=== PATIENT | male | born 1985 | race Two or more races ===

== ENCOUNTER 2018-11-03 19:36 | Emergency (ER) | payer SELFPAY ==
[~2018-11-03] VITALS: Ht 180.3 cm; Wt 68.0 kg
[2018-11-03 20:00] VITALS: BP 120/68
--- NOTE | 2018-11-03 20:00 | Emergency Room Report ---
History of Present Illness General Chief Complaint: Medical Clearance Source: Patient Present Illness HPI 33-year-old male patient presents the ER brought in by police for medical clearance for incarceration. Patient denies acute complaints at this time. Please report the patient initially was complaining of cut on wrist and bilateral wrist pain secondary to handcuffs. Denies wrist pain currently. Patient denies other acute complaints at this time. Denies fever, chest pain, shortness of breath, abdominal pain. Patient states "I do not want to be here". Allergies: Coded Allergies: No Known Allergies (Unverified , 11/03/18) Patient History Past Medical History: see triage record Reviewed Nursing Documentation: PMH: Agreed; PSxH: Agreed Nursing Documentation-PMH Past Medical History: No Stated History Review of Systems All Other Systems: negative except mentioned in HPI Physical Exam Vital Signs Date Time Temp Pulse Resp B/P (MAP) Pulse Ox O2 Delivery O2 Flow Rate FiO2 11/03/18 19:45 98.6 88 17 120/68 99 Room Air Sp02 EP Interpretation: reviewed, normal General Appearance: well appearing, no apparent distress, alert, GCS 15, non- toxic Head: normocephalic, atraumatic Eyes: bilateral eye normal inspection, bilateral eye PERRL ENT: hearing grossly normal, normal pharynx, no angioedema, normal voice, uvula midline, moist mucus membranes Neck: full range of motion Respiratory: lungs clear, normal breath sounds, no rhonchi, no respiratory distress, no accessory muscle use, no wheezing, speaking full sentences Cardiovascular #1: regular rate, rhythm, no edema Cardiovascular #2: 2+ radial (R), 2+ radial (L) Musculoskeletal: back normal, digits/nails normal, gait/station normal, normal range of motion, non-tender Neurologic: alert, oriented x3, responsive, motor strength/tone normal, sensory intact Psychiatric: mood/affect normal Skin: no rash, other - no laceration Medical Decision Making PA Attestation Dr. Garcia is my supervising Physician whom patient management has been discussed with. Diagnostic Impression: Primary Impression: Medical clearance for incarceration ER Course Pt. presents to the ED requesting medical clearance for booking. Multiple differentials considered. Patient Vitals Signs WNL, patient is afebrile. PE benign. No skull depression, lungs clear to auscultation, no abdominal TTP. Patient not suicidal or homicidal at this time. Patient in no acute distress, nontoxic appearing, breathing without difficulty. ORDERS: none required at this time, the diagnosis is clinical ED INTERVENTIONS: None required at this time. DISCHARGE: At this time pt. is stable for d/c to police custody. Will provide printed patient care instructions, and any necessary prescriptions. Care plan and follow up instructions have been discussed with the patient prior to discharge - Please note that this Emergency Department Report was dictated using [employer] car attendant technology software, occasionally this can lead to erroneous entry secondary to interpretation by the dictation equipment. Last Vital Signs Date Time Temp Pulse Resp B/P (MAP) Pulse Ox O2 Delivery O2 Flow Rate FiO2 11/03/18 19:45 98.6 88 17 120/68 99 Room Air Status: improved Disposition: HOME, SELF-CARE Condition: Stable Additional Instructions: Followup with primary care provider in 3 -5 days. Take medications as directed. Patient questions asked and answered. ER precautions given, patient instructed to return to ER immediately for any new or worsening of symptoms. Yaw Powell Nov 03, 2018 20:00
[2018-11-03 20:45] VITALS: BP 125/72
== END 2018-11-03 20:45 ==
LOC: EMR 19:59
DX: Z02.89 Encounter for other administrative examinations (principal)
CPT/HCPCS: 99282